=== PATIENT | male | born 1960 | race Caucasian/White ===

== ENCOUNTER 2019-08-05 09:57 | Day surgery (SDC) | payer MEDICAID ==
[~2019-08-05] VITALS: Ht 180.3 cm; Wt 82.0 kg
[~2019-08-05 09:57] MED LIST: ABAC1TAB2 PO; BUTA-244 PO; DOCU100C40 PO; HYDR-4353 PO; NAPR-996 PO; RALT400T PO; ceFAZolin 2gm in dextrose, iso 50 ML IV ONE; famotidine 20mg tablet PO ONE; ringers solution, lacted 1,000 ML IV SCH
[2019-08-05 10:00] VITALS: BP 128/77
[2019-08-05] MEDS ORDERED: ringers solution, lacted 1,000 ML IV SCH (11:07)
[2019-08-05] MEDS ORDERED: meperidine/PF 25mg/ml syringe IV PRN ×3 (11:10)
[2019-08-05] MEDS ORDERED: ondansetron/PF 4mg/2ml inj IV PRN (11:10)
[2019-08-05] MEDS ORDERED: morphine 2 MG/ML inj. syringe IV PRN (11:10)
[2019-08-05] MEDS ORDERED: morphine 4 MG/ML inj SYRINge IV PRN (11:10)
[2019-08-05] MEDS ORDERED: proCHLORperazine 10 MG/2 ml inj IV PRN (11:10)
[2019-08-05 11:46] LABS: BASOPHILS % (AUTO) 0.9 % (0-1); EOSINOPHILS # (AUTO) 0.2 X10'3 (0-0.9); EOSINOPHILS % (AUTO) 3.9 % (0-6); LYMPHOCYTES # (AUTO) 1.6 X10'3 (1.1-4.8); MEAN CORPUSCULAR HEMOGLOBIN 32.9 PG (27.0-31.0); MEAN CORPUSCULAR VOLUME 96.9 FL (78-98); MEAN PLATELET VOLUME 8.6 FL (7.4-10.4); MONOCYTES # (AUTO) 0.4 X10'3 (0-0.9); MONOCYTES % (AUTO) 9.8 % (2-12); NEUTROPHILS % (AUTO) 46.4 % (42-75); PRE OP HEMATOCRIT 41.4 % (42.0-52.0); PRE OP HEMOGLOBIN 14.1 g/dL (14.0-17.9); PRE OP PLATELET COUNT 229 X10'3 (140-440); RED BLOOD COUNT 4.27 X10'6 (4.70-6.10); RED CELL DISTRIBUTION WIDTH 13.3 % (11.5-14.5)
[2019-08-05 11:53] LABS: ALBUMIN 3.6 G/DL (3.4-5.0); ALBUMIN/GLOBULIN RATIO 1.1 (1.1-1.5); ALKALINE PHOSPHATASE 166 IU/L (46-116); BLOOD UREA NITROGEN 29 MG/DL (7-18); BUN/CREATININE RATIO 31.9 (5.4-32.0); CALCIUM 8.7 MG/DL (8.5-10.1); CHLORIDE 107 MMOL/L (99-107); CREATININE 0.91 MG/DL (0.60-1.10); PRE OP ALT 22 U/L (30-65); PRE OP ANION GAP 3 (8-16); PRE OP AST 19 U/L (10-37); PRE OP BILIRUB, TOTAL 0.2 MG/DL (0.0-1.0); PRE OP GLUCOSE 97 MG/DL (70-104); PRE OP SODIUM 141 MMOL/L (135-145); TOTAL CARBON DIOXIDE 31.1 MMOL/L (24-32); eGFR 86 ML/MIN
[2019-08-05] MEDS ORDERED: LIDOcaine 1% 30ml preserv. free vial ONE (12:30)
[2019-08-05] MEDS ORDERED: BUPIVAcaine/PF 2.5 mg/ml (0.25%) 30ml vial ONE (12:30)
[2019-08-05 13:04] VITALS: BP 128/77
== END 2019-08-05 13:50 | disposition home or self-care (01) ==
LOC: PAS 09:57
PROVIDERS: ATTEND Surgery
DX: R22.2 Localized swelling, mass and lump, trunk (principal); Z53.8 Procedure and treatment not carried out for other reasons
CPT/HCPCS: 36415; 80053; 85025; J2001; J3490; J7120